=== PATIENT | female | born 1945 | race Caucasian/White ===

== ENCOUNTER 2020-12-29 17:33 | Emergency (ER) | payer MEDICARE | END 2020-12-29 19:09 | disposition home or self-care (01) | LOC: CSHERS 17:33 | DX: R60.0 Localized edema (principal); I10 Essential (primary) hypertension; E03.9 Hypothyroidism, unspecified; E78.5 Hyperlipidemia, unspecified; E78.00 Pure hypercholesterolemia, unspecified ==

== ENCOUNTER 2024-10-16 08:38 | Outpatient (CLI) | payer OTHER | END 2024-10-16 08:39 | disposition home or self-care (01) | LOC: CSHMAMMO 08:38 | PROVIDERS: ATTEND Obstetrics & Gynecology | DX: N64.89 Other specified disorders of breast (principal) | CPT/HCPCS: G0279 ==